=== PATIENT | female | born 1980 | race Caucasian/White ===

== ENCOUNTER → 2022-05-22 | Outpatient (CLI) | payer BC ==
[2022-05-22 10:30] LABS: HCT 44.4 % (37.2-46.3); HGB 14.3 g/dL (12.0-15.0); MCH 27.6 pg (27.0-32.0); MCHC 32.2 g/dL (32.0-37.0); MCV 85.7 fL (80.0-97.0); Mean Platelet Volume 9.9 fL (9.5-12.2); NRBC Per 100 WBC 0 /100 WBCS (0.0-0.0); Platelet Count 354 X 10*3/uL (140-440); RBC 5.18 X 10*6/uL (4.10-5.20); RDW 13.7 % (11.5-14.5); WBC 10.05 X 10*3/uL (4.50-10.00)
[2022-05-22 12:19] LABS: Erythrocyte Sedimentation Rate 22 mm/Hr (0-20)
[2022-05-22 16:08] LABS: Rheumatoid Factor, Qnt <10 IU/mL (0-15)
[2022-05-22 16:27] LABS: Streptolysin O Ab(ASO) 97 IU/L (0-200)
[2022-05-23 14:02] LABS: HLA B27 NEGATIVE
[2022-05-23 14:03] LABS: Lyme IgG/IgM 0.14 Index
== END | disposition home or self-care (01) ==
LOC: LABWHC1 08:14
PROVIDERS: ATTEND Orthopaedic Surgery
DX: M23.8X2 Other internal derangements of left knee (principal); M79.7 Fibromyalgia; M25.462 Effusion, left knee; M06.9 Rheumatoid arthritis, unspecified
CPT/HCPCS: 36415; 84443; 85027; 85652; 86038; 86060; 86140; 86431; 86618; 86812